=== PATIENT | male | born 1950 | race Caucasian/White ===

== ENCOUNTER 2018-08-27 12:09 | Emergency (ER) | payer MEDICARE, BC ==
[2018-08-27] MEDS ORDERED: Ketorolac 30 MG/ML SDV IM ONE (12:28)
[2018-08-27] MEDS ORDERED: Ondansetron 4 MG Tab.DIS ONE (12:44)
[2018-08-27] MEDS ORDERED: Ondansetron 4 MG Tab.DIS PO ONE ×2 (13:14→13:18)
[2018-08-27] MEDS ORDERED: HYDROmorphone 1 MG/ML Syringe IVPUSH ONE (13:17)
[2018-08-27] MEDS ORDERED: Naloxone 0.4 MG/ML Syringe IVPUSH ONE (13:17)
[2018-08-27] MEDS ORDERED: Sodium Chloride 0.9% 1,000 ML IV ONE (13:28)
[2018-08-27] MEDS ORDERED: Sodium Chloride 0.9% 50 ML IV SCH (13:30)
[2018-08-27] MEDS ORDERED: Iopamidol 612 MG/ML 100 ML Bottle IVPUSH ONE (13:36)
[2018-08-27 13:51] LABS: CHLORIDE,CL 104 mmol/L (98-115); SODIUM,NA 139 mmol/L (136-145)
--- NOTE | 2018-08-27 14:27 | EDM.PDOC ---
ED HPI GENERAL MEDICAL PROBLEM - General Chief Complaint: Abdominal Pain Stated Complaint: HIT IN RIBS WITH A BARREL Time Seen by Provider: 08/27/18 12:15 Source of Information: Reports: Patient - History of Present Illness INITIAL COMMENTS - FREE TEXT/NARRATIVE: 68-year-old male presents to emergency room brought in by his for complaints of right sided upper quadrant and rib pain. Patient was unloading a empty 55 gallon drum off Payloader pocket catching the edge of the bucket and kicking back into his right abdomen and ribs. Patient reports the pain was severe. He was unable to sit or bend down due to the severity of his pain. He denies any other trauma. Denies shortness of breath. He denies chest pain. He notices pain over the abdomen of the right upper quadrant. He has mild lower rib pain. He is experiencing some nausea due to the discomfort. 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, Other (see below) Other Treatments FREIGHT CLERK: cbd oil Right Middle Abdomen Pain Score (Numeric/FACES): 8 - Related Data Allergies Allergy/AdvReac Type Severity Reaction Status Date / Time oxycodone Allergy Cannot Verified 08/27/18 12:36 Remember Home Meds: Home Meds Aspirin [Halfprin] 81 mg PO DAILY 08/27/18 [History] Past Medical History HEENT History: Reports: None Gastrointestinal History: Reports: None Genitourinary History: Reports: Renal Calculus - Infectious Disease History Infectious Disease History: Reports: Chicken Pox, Measles, Mumps - Past Surgical History HEENT Surgical History: Reports: Tonsillectomy Cardiovascular Surgical History: Reports: Other (See Below) Other Cardiovascular Surgeries/Procedures: mitral valve repair GI Surgical History: Reports: Appendectomy, Cholecystectomy, Colostomy, Hernia Repair/Other Male Surgical History: Reports: None Social & Family History - Tobacco Use Smoking Status *Q: Never Smoker - Caffeine Use Caffeine Use: Reports: Coffee, Soda, Tea - Recreational Drug Use Recreational Drug Use: No ED ROS GENERAL - Review of Systems Review Of Systems: See Below Constitutional: Denies: Diaphoresis HEENT: Reports: No Symptoms Respiratory: Denies: Shortness of Breath, Hemoptysis Cardiovascular: Denies: Chest Pain, Lightheadedness, Syncope Endocrine: Reports: No Symptoms GI/Abdominal: Reports: Abdominal Pain, Nausea : Denies: Flank Pain Musculoskeletal: Denies: Neck Pain, Back Pain Skin: Denies: Cyanosis, Jaundice, Diaphoresis, Bruising Neurological: Denies: Numbness, Paresthesia, Syncope Psychiatric: Reports: No Symptoms Hematologic/Lymphatic: Reports: No Symptoms Immunologic: Reports: No Symptoms ED EXAM, GI/ABD - Physical Exam Exam: See Below Exam Limited By: No Limitations General Appearance: Alert, WD/WN, Moderate Distress Eyes: Bilateral: Normal Appearance Ears: Hearing Grossly Normal Nose: Normal Inspection, Normal Mucosa Throat/Mouth: Normal Inspection, Normal Voice, No Airway Compromise Head: Atraumatic, Normocephalic Neck: Normal Inspection, Supple, Non-Tender, Full Range of Motion Respiratory/Chest: No Respiratory Distress, Lungs Clear, Normal Breath Sounds, No Accessory Muscle Use, Other (Tenderness over the right lower ribs) Cardiovascular: Normal Peripheral Pulses, Regular Rate, Rhythm, No Murmur GI/Abdominal Exam: No Distention, Tender (Tender over the right upper quadrant) Back Exam: Normal Inspection Extremities: Normal Inspection Neurological: Alert, Oriented, No Motor/Sensory Deficits Psychiatric: Normal Affect, Normal Mood Skin Exam: Warm, Dry, Intact, Normal Color, No Rash Course - Vital Signs Last Recorded V/S: Last Vital Signs Temp 97.3 F 08/27/18 12:27 Pulse 57 L 08/27/18 13:36 Resp 20 08/27/18 13:36 BP 129/61 08/27/18 13:36 Pulse Ox 98 08/27/18 13:36 - Orders/Labs/Meds Orders: Active Orders 24 hr Category Date Time Status Abdomen Pelvis w Cont [CT] Stat Exams 08/27/18 13:15 Taken Ribs 2V w Chest Rt [CR] Stat Exams 08/27/18 12:14 Taken Sodium Chloride 0.9% [Normal Saline] 50 ml Med 08/27/18 13:30 Active IV ASDIRECTED Medication Orders Sodium Chloride (Normal Saline) 50 mls @ 200 mls/min IV ASDIRECTED MIGUEL Labs: Laboratory Tests 08/27/18 08/27/18 Range/Units 12:23 12:23 WBC 7.65 (5.00-10.00) 10^3/uL RBC 4.39 L (4.50-6.00) 10^6/uL Hgb 14.3 (13.0-17.0) g/dL Hct 40.8 (40.0-52.0) % MCV 92.9 H (82.0-92.0) fL MCH 32.6 H (27.0-31.0) pg MCHC 35.0 (32.0-36.0) g/dL RDW 12.7 (11.5-14.5) % Plt Count 182 (150-400) 10^3/uL MPV 10.6 H (7.4-10.4) fL Immature Gran % (Auto) 0.1 (0.0-5.0) % Neut % (Auto) 78.7 H (50.0-70.0) % Lymph % (Auto) 12.0 L (20.0-40.0) % Bradley % (Auto) 7.5 (2.0-8.0) % Eos % (Auto) 1.2 (1.0-3.0) % Baso % (Auto) 0.5 (0.0-1.0) % Immature Gran # (Auto) 0.01 (0.00-0.50) 10^3/uL Neut # (Auto) 6.02 (2.50-7.00) 10^3/uL Lymph # (Auto) 0.92 L (1.00-4.00) 10^3/uL Bradley # (Auto) 0.57 (0.10-0.80) 10^3/uL Eos # (Auto) 0.09 L (0.10-0.30) 10^3/uL Baso # (Auto) 0.04 (0.00-0.10) 10^3/uL Sodium 139 (136-145) mmol/L Potassium 4.0 (3.3-5.3) mmol/L Chloride 104 (98-115) mmol/L Carbon Dioxide 26.0 (21.0-32.0) mmol/L Anion Gap 13.0 (5-15) mmol/L BUN 14 (6-25) mg/dL Creatinine 1.10 (0.51-1.17) mg/dL Est Cr Clr Drug Dosing 69.57 mL/min Estimated GFR (MDRD) > 60 mL/min Glucose 114 H (75 - 99) mg/dL Calcium 9.1 (8.7-10.3) mg/dL Meds: Medications Generic Name Dose Route Start Last Admin Trade Name Nataliia PRN Reason Stop Dose Admin Sodium Chloride 50 mls @ 200 mls/min 08/27/18 13:30 Normal Saline IV ASDIRECTED MIGUEL Discontinued Medications Generic Name Dose Route Start Last Admin Trade Name Nataliia PRN Reason Stop Dose Admin Hydromorphone HCl 1 mg 08/27/18 13:17 08/27/18 13:50 Dilaudid IVPUSH 08/27/18 13:18 1 mg ONETIME ONE Administration Sodium Chloride 1,000 mls @ 999 mls/hr 08/27/18 13:28 08/27/18 13:34 Normal Saline IV 08/27/18 14:28 999 mls/hr .BOLUS ONE Administration Iopamidol 100 ml 08/27/18 13:36 Isovue-300 (61%) IVPUSH 08/27/18 13:37 ONETIME ONE Ketorolac Tromethamine 30 mg 08/27/18 12:28 08/27/18 12:49 Toradol IM 08/27/18 12:29 30 mg ONETIME ONE Administration Naloxone HCl 0.4 mg 08/27/18 13:17 Narcan IVPUSH 08/27/18 13:18 ONETIME ONE Ondansetron HCl Confirm 08/27/18 12:44 Zofran Odt Administered 08/27/18 12:45 Dose 4 mg .ROUTE .STK-MED ONE Ondansetron HCl 4 mg 08/27/18 13:14 08/27/18 12:43 Zofran Odt PO 08/27/18 13:15 4 mg ONETIME ONE Administration Ondansetron HCl 4 mg 08/27/18 13:18 Zofran Odt PO 08/27/18 13:19 ONETIME ONE - Re-Assessments/Exams Free Text/Narrative Re-Assessment/Exam: 08/27/18 14:28 She was given 30 mg of IM Toradol mild improvement. Is given Zofran 4 mg ODT for some nausea. His right upper quadrant pain was severe with any transfer from a seating to the cart. An IV was placed 1 L fluids was given Dilaudid 1 mg IV was given with improvement of pain. Patient was scheduled for a CT abdomen with IV contrast. Free Text/Narrative Re-Assessment/Exam: 08/27/18 15:06 Patient is comfortable lying in the bed. He feels the Dilaudid helped significantly with regards his pain CT is completed and report shows no evidence of acute trauma. Departure - Departure Time of Disposition: 15:25 Disposition: Home, Self-Care 01 Condition: Good Clinical Impression: Abdominal wall contusion Qualifiers: Encounter type: initial encounter Qualified Code(s): S30.1XXA - Contusion of abdominal wall, initial encounter - Discharge Information Instructions: Blunt Abdominal Trauma, Pain Medicine Instructions, [id number] Referrals: Miley Cruz PA-C [Primary Care Provider] - Forms: ED Department Discharge - My Orders Last 24 Hours: My Active Orders 08/27/18 12:14 Ribs 2V w Chest Rt [CR] Stat 08/27/18 13:15 Abdomen Pelvis w Cont [CT] Stat 08/27/18 13:30 Sodium Chloride 0.9% [Normal Saline] 50 ml IV ASDIRECTED - Assessment/Plan Last 24 Hours: My Active Orders 08/27/18 12:14 Ribs 2V w Chest Rt [CR] Stat 08/27/18 13:15 Abdomen Pelvis w Cont [CT] Stat 08/27/18 13:30 Sodium Chloride 0.9% [Normal Saline] 50 ml IV ASDIRECTED Assessment:: Abdominal wall contusion Plan: 1. Rest 2. Ice packs as needed 3. Lumbar corset can be used as needed that the patient has for comfort. 4. Ibuprofen 800 mg 3 times a day for pain with food as needed 5. For severe pain hydrocodone 5/325 1 every 4 hours as needed.
== END 2018-08-27 15:25 | disposition home or self-care (01) ==
LOC: KA.ED 12:09
DX: S30.1XXA Contusion of abdominal wall, initial encounter (principal); Z88.5 Allergy status to narcotic agent; Z79.82 Long term (current) use of aspirin; Z79.899 Other long term (current) drug therapy; Z87.442 Personal history of urinary calculi; W22.8XXA Striking against or struck by other objects, initial encounter
CPT/HCPCS: 71101; 74177; 80048; 85025; 96361; 96372; 96374; 99284; A9270; J1170; J1885; J7030

== ENCOUNTER 2020-08-19 13:35 | Emergency (ER) | payer MEDICARE, BC ==
[2020-08-19] MEDS: Lidocaine 2% 5 ML SDV INJECT ONE ×2 (14:10→14:15)
[2020-08-19] MEDS: Lidocaine 2% 5 ML SDV ONE (14:11)
[2020-08-19] MEDS: Diphtheria,Pertussis(Acell),Tetanus Vaccine 0.5 ML Syringe IM ONE (14:55)
--- NOTE | 2020-08-19 14:59 | EDM.PDOC ---
ED HPI GENERAL MEDICAL PROBLEM - General Chief Complaint: General Stated Complaint: RIGHT HAND INJURY Time Seen by Provider: 08/19/20 14:00 Source of Information: Reports: Patient History Limitations: Reports: No Limitations - History of Present Illness INITIAL COMMENTS - FREE TEXT/NARRATIVE: Mika 70-year-old [place] to the emergency room with a laceration of the index and long finger right hand. Patient states that he was cutting some hose with a utility knife when it slipped cutting across his index and long finger just distal to the DIP joint of both the index and long finger. He wrapped with a cloth to help stop the bleeding. He noticed that the lacerations look like they needed to be sutured and now presents to the emergency room. He has no other complaints. He denies any numbness or tingling in his index or long finger. He is able to fully extend and flex at the fingers. 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) - Related Data Allergies Allergy/AdvReac Type Severity Reaction Status Date / Time oxycodone Allergy Cannot Verified 08/19/20 14:41 Remember Home Meds: Home Meds Aspirin [Halfprin] 81 mg PO DAILY 08/27/18 [History] Past Medical History HEENT History: Reports: None Gastrointestinal History: Reports: None Genitourinary History: Reports: Renal Calculus - Infectious Disease History Infectious Disease History: Reports: Chicken Pox, Measles, Mumps - Past Surgical History HEENT Surgical History: Reports: Tonsillectomy Cardiovascular Surgical History: Reports: Other (See Below) Other Cardiovascular Surgeries/Procedures: mitral valve repair GI Surgical History: Reports: Appendectomy, Cholecystectomy, Colostomy, Hernia Repair/Other Male Surgical History: Reports: None Social & Family History - Tobacco Use Tobacco Use Status *Q: Never Tobacco User - Caffeine Use Caffeine Use: Reports: Coffee, Soda - Recreational Drug Use Recreational Drug Use: No ED ROS GENERAL - Review of Systems Review Of Systems: Comprehensive ROS is negative, except as noted in HPI. ED EXAM, GENERAL - Physical Exam Exam: See Below Exam Limited By: Language Barrier General Appearance: Alert, WD/WN, No Apparent Distress Ears: Hearing Grossly Normal Nose: Normal Inspection Throat/Mouth: Normal Voice Head: Atraumatic Respiratory/Chest: No Respiratory Distress Extremities: Other (Right upper extremity exam there is lacerations half a centimeter and one 1 cm in length overlying the dorsal aspect of the index and long finger just distal to the PIP joint. These wounds are superficial they do not expose the tendon. He has full extensor tendon function of the index finger and l) Neurological: Alert, Oriented, No Motor/Sensory Deficits ED GENERAL MEDICAL PROCEDURES - Laceration/Wound Repair Right Digit - 2nd (Index) Lac/wound length in cm: 0.5 Appearance: Superficial Anesthetic Type: Local Local Anesthesia - Lidocaine (Xylocaine): 2% Plain Local Anesthetic Volume: 2cc Skin Prep: Chlorhexidine (Hibiciens), Providone-Iodine (Betadine), Sterile Drape Exploration/Debridement/Repair: Wound Explored, In a Bloodless Field Closed with: Sutures Suture Size: 4-0 # of Sutures: 4 Suture Type: Nylon Drain Placement: No Sterile Dressing Applied: Provider Tetanus Status Addressed: Yes Complications: No Right Digit - 3rd (Middle) Lac/wound length in cm: 1 Appearance: Superficial Anesthetic Type: Local Local Anesthesia - Lidocaine (Xylocaine): 2% Plain Local Anesthetic Volume: 5cc Skin Prep: Chlorhexidine (Hibiciens), Providone-Iodine (Betadine), Saline, Sterile Drape Exploration/Debridement/Repair: Wound Explored, In a Bloodless Field Closed with: Sutures Suture Size: 4-0 # of Sutures: 6 Drain Placement: No Sterile Dressing Applied: Provider Tetanus Status Addressed: Yes Complications: No Course - Vital Signs Last Recorded V/S: Last Vital Signs Temp 96.8 F L 08/19/20 13:40 Pulse 70 08/19/20 13:40 Resp 18 08/19/20 13:40 BP 141/88 H 08/19/20 13:40 Pulse Ox 98 08/19/20 13:40 - Orders/Labs/Meds Orders: Active Orders 24 hr Category Date Time Status Vaccines to be Administered [RC] PER UNIT ROUTINE Care 08/19/20 14:50 Ordered Meds: Medications Discontinued Medications Generic Name Dose Route Start Last Admin Trade Name Freq PRN Reason Stop Dose Admin Cephalexin 1,000 mg 08/19/20 14:50 Cephalexin 250 Mg Cap PO 08/19/20 14:51 ONETIME ONE Diphtheria/Tetanus/Acell Pertussis 0.5 ml 08/19/20 14:49 Diphtheria,Pertussis(Acell),Tetanus Vaccine 0.5 Ml Syringe IM 08/19/20 14:50 .ONCE ONE Lidocaine 5 ml 08/19/20 13:42 08/19/20 14:10 Lidocaine 2% 5 Ml Sdv INJECT 08/19/20 13:43 5 ml ONETIME ONE Administration Lidocaine Confirm 08/19/20 14:00 08/19/20 14:11 Lidocaine 2% 5 Ml Sdv Administered 08/19/20 14:01 Not Given Dose 5 ml .ROUTE .STK-MED ONE Lidocaine 5 ml 08/19/20 14:14 08/19/20 14:15 Lidocaine 2% 5 Ml Sdv INJECT 08/19/20 14:15 5 ml ONETIME ONE Administration - Re-Assessments/Exams Free Text/Narrative Re-Assessment/Exam: 08/19/20 15:02 Patient tolerated procedure well,no complications. Tetanus was updated. Sterile dressings were applied. Discussed dressing change in [address] him on oral antibiotics for 3 days. Departure - Departure Time of Disposition: 15:04 Disposition: Home, Self-Care 01 Condition: Good Clinical Impression: Laceration of finger, right Qualifiers: Encounter type: initial encounter Finger: middle finger Damage to nail status: without damage Foreign body presence: without foreign body Qualified Code(s): S61.212A - Laceration without foreign body of right middle finger without damage to nail, initial encounter - Discharge Information Instructions: Laceration Care, Adult, [id number] Referrals: Dania Morgan MD [Primary Care Provider] - Forms: ED Department Discharge Care Plan Goals: 1. Dressing change in 3 days. Clean the incision with peroxide. Cover the incisions with Band-Aids.. 2. Keep the wounds clean dry until sutures removed in 10 days. 3. Suture removal in 10 days with primary care. This can be removed in the clinic or ER.. 4. Keflex 500 mg 3 times a day for 3 days. 5. Follow-up with your primary care if any concerns for wound infection, this would include redness around the incision, purulence, warmth, increased pain in the fingers. Sepsis Event Note (ED) - Evaluation Sepsis Screening Result: No Definite Risk - Focused Exam Vital Signs: Vital Signs Temp Pulse Resp BP Pulse Ox 08/19/20 13:40 96.8 F L 70 18 141/88 H 98 - My Orders Last 24 Hours: My Active Orders 08/19/20 14:50 Vaccines to be Administered [RC] PER UNIT ROUTINE - Assessment/Plan Last 24 Hours: My Active Orders 08/19/20 14:50 Vaccines to be Administered [RC] PER UNIT ROUTINE Assessment:: Laceration right index and long finger Plan: 1. Dressing change in 3 days. Clean the incision with peroxide. Cover the incisions with Band-Aids.. 2. Keep the wounds clean dry until sutures removed in 10 days. 3. Suture removal in 10 days with primary care. This can be removed in the clinic or ER.. 4. Keflex 500 mg 3 times a day for 3 days. 5. Follow-up with your primary care if any concerns for wound infection, this would include redness around the incision, purulence, warmth, increased pain in the fingers.
[2020-08-19] MEDS: Cephalexin 250 MG Cap PO ONE (15:04)
== END 2020-08-19 15:00 | disposition home or self-care (01) ==
LOC: KA.ED 13:35
DX: S61.212A Laceration without foreign body of right middle finger without damage to nail, initial encounter (principal); S61.210A Laceration without foreign body of right index finger without damage to nail, initial encounter; Z23 Encounter for immunization; Z88.5 Allergy status to narcotic agent; Z79.82 Long term (current) use of aspirin; W26.0XXA Contact with knife, initial encounter
CPT/HCPCS: 12001; 90471; 90715; 99282-25; 99283; A9270-GY

== ENCOUNTER 2021-12-26 01:21 | Emergency (ER) | payer MEDICARE, BC | END 2021-12-26 02:31 | disposition home or self-care (01) | LOC: KA.ED 01:21 | DX: R04.0 Epistaxis (principal); Z88.5 Allergy status to narcotic agent; Z79.82 Long term (current) use of aspirin | CPT/HCPCS: 99283 ==

== ENCOUNTER 2022-09-02 16:13 | Emergency (ER) | payer MEDICARE, BC | END 2022-09-02 17:08 | LOC: KA.ED 16:13 | DX: S61.201A Unspecified open wound of left index finger without damage to nail, initial encounter (principal); I48.91 Unspecified atrial fibrillation; Z88.5 Allergy status to narcotic agent; Z79.82 Long term (current) use of aspirin; Z79.02 Long term (current) use of antithrombotics/antiplatelets; W31.9XXA Contact with unspecified machinery, initial encounter | CPT/HCPCS: 73140-F1; 99284 ==

== ENCOUNTER 2022-10-27 18:28 | Emergency (ER) | payer MEDICARE, BC ==
[2022-10-27] MEDS ORDERED: Sodium Chloride 0.9% 10 ML Syringe FLUSH PRN (18:35)
[2022-10-27 18:50] LABS: BASOPHILS ABSOLUTE AUTO 0.03 10^3/uL (0.00-0.10); BASOPHILS PERCENT AUTO 0.6 % (0.0-1.0); EOSINOPHILS ABSOLUTE AUTO 0.11 10^3/uL (0.10-0.30); EOSINOPHILS PERCENT AUTO 2.2 % (1.0-3.0); HEMATOCRIT 40.8 % (40.0-52.0); HEMOGLOBIN 13.6 g/dL (13.0-17.0); LYMPHOCYTES ABSOLUTE AUTO 0.86 10^3/uL (1.00-4.00); LYMPHOCYTES PERCENT AUTO 17.5 % (20.0-40.0); MEAN CORPUSCULAR HEMOGLOBIN 30.9 pg (27.0-31.0); MEAN CORPUSCULAR HGB CONC 33.3 g/dL (32.0-36.0); MEAN CORPUSCULAR VOLUME 92.7 fL (82.0-92.0); MEAN PLATELET VOLUME 9.9 fL (7.4-10.4); MONOCYTES ABSOLUTE AUTO 0.47 10^3/uL (0.10-0.80); MONOCYTES PERCENT AUTO 9.6 % (2.0-8.0); NEUTROPHILS ABSOLUTE AUTO 3.44 10^3/uL (2.50-7.00); NEUTROPHILS PERCENT AUTO 70.1 % (50.0-70.0); PLATELET COUNT,PLT 219 10^3/uL (150-400); RED CELL DISTRIBUTION WIDTH 12.4 % (11.5-14.5); WHITE BLOOD CELL COUNT,WBC 4.91 10^3/uL (5.00-10.00)
[2022-10-27 19:09] LABS: ALBUMIN 4.27 g/dL (3.40-5.00); ANION GAP 14.2 mmol/L (5-15); BILIRUBIN TOTAL 0.6 mg/dL (0.2-1.0); CALCIUM 8.9 mg/dL (8.7-10.3); CARBON DIOXIDE,CO2 23.7 mmol/L (21.0-32.0); CREATININE 1.2 mg/dL (0.51-1.17); EST CRCL DRUG DOSING (CG) 60.18 mL/min; POTASSIUM,K 3.9 mmol/L (3.5-5.1); PROTEIN TOTAL,TP 7.3 g/dL (6.4-8.2)
[2022-10-27] MEDS ORDERED: Sodium Chloride 0.9% 1,000 ML IV ONE (19:17)
[2022-10-27] MEDS ORDERED: Sodium Chloride 0.9% 1,000 ML ONE (19:19)
== END 2022-10-27 20:20 | disposition home or self-care (01) ==
LOC: KA.ED 18:28
DX: E86.0 Dehydration (principal); I48.91 Unspecified atrial fibrillation; Z95.0 Presence of cardiac pacemaker; Z79.02 Long term (current) use of antithrombotics/antiplatelets; Z79.82 Long term (current) use of aspirin; Z88.5 Allergy status to narcotic agent
CPT/HCPCS: 71045; 80053; 83880; 84484; 85025; 93005; 96360; 99284-25; J3490; J7030